=== PATIENT | male | born 1995 | race African-American/Black ===

== ENCOUNTER 2022-08-03 10:25 | Emergency (ER) | payer BC, SELFPAY ==
[2022-08-03 10:37] VITALS: BP 140/64; PULSE 93; RESP 20; TEMP 36.3; O2SAT 100; BMI 30.7
[2022-08-03 10:55] LABS: Appearance Urine Clear (Clear); Bilirubin Urine Negative (Negative); Blood Urine Negative (Negative); Color Urine Yellow (Yellow); Glucose Urine Negative (Negative); Ketones Urine Negative (Negative); Leukocyte Esterase Urine Negative (Negative); Nitrite Urine Negative (Negative); Protein Urine Trace (Negative); Urobilinogen Urine 0.2 (0.2-1.0); pH Urine 8.5 (5.0-8.5)
[2022-08-03 11:08] LABS: RBC Urine 0-2 (0-2); WBC Urine 0-2 (0-5)
[2022-08-03 11:09] LABS: Squamous Epithelial Cell Urine Few (None-Few)
[2022-08-03 11:19] LABS: Basophils Percent Auto 0.5 % (0.0-3.0); Eosinophils Percent Auto 1.2 % (0.0-7.0); Hematocrit 45.9 % (37.0-53.0); Hemoglobin* 16.1 gm/dL (13.5-17.5); Immature Granulocytes Pct Auto 0.3 %; Lactate* 2.6 mmol/L (0.5-1.9); Lymphocytes Percent Auto 9.5 % (20-44); Mean Corpuscular HGB Conc 35 gm/dL (32-36); Mean Corpuscular Hemoglobin 30 pg (26-34); Mean Corpuscular Volume 86 fL (80-100); Monocytes Percent Auto 7.8 % (0.0-11.0); Neutrophils Percent Auto 80.7 % (42.0-72.0); Platelet Count* 221 K/uL (140-440); RDW Coefficient of Variation % 12.2 % (11.5-15.5); Red Blood Count 5.33 m/uL (4.30-5.90); White Blood Count* 12.19 K/uL (4.50-11.00)
[2022-08-03 11:24] LABS: Slide Review Reflex No
[2022-08-03] MEDS: 0.9 % SODIUM CHLORIDE 1000 ml 1,000 ML IV (11:24)
[2022-08-03] MEDS: ONDANSETRON 2 MG/ML inj 4 MG IVP (11:24)
[2022-08-03] MEDS: KETOROLAC 15 MG/ML inj IVP (11:24)
--- NOTE | 2022-08-03 11:27 | CRLHL7_ITS ---
For Patients: As a result of the Century Cures Act, medical imaging exams and procedure reports are released immediately into your electronic medical record. You may view this report before your referring provider. If you have questions, please contact your health care provider. INDICATION: Right lower quadrant pain TECHNIQUE: Contrast-enhanced CT of abdomen and pelvis was performed after administration 98 cc Isovue 370. Coronal and sagittal reformats were obtained on an independent workstation. COMPARISON: None FINDINGS: Chest: Lung bases: No suspicious pulmonary nodules or consolidation. No basal effusion or pneumothorax. Heart base: Unremarkable. Abdomen/Pelvis: Liver: Non-cirrhotic morphology. No suspicious lesion. Gallbladder: Unremarkable. Spleen: Normal in size. Adrenal glands: Unremarkable. Kidneys: Symmetric enhancement. Mild right-sided hydronephrosis with nephrolith in the right distal ureter measuring 3 mm (2/130). Nonobstructive nephrolith in the right interpolar region measuring 2 mm (4/80).. No left-sided hydronephrosis or nephrolithiasis. Sub centimeter cortical hypodensities are too small to characterize, statistically cysts. Pancreas: Unremarkable. Lymph nodes: No retroperitoneal, mesenteric, inguinal, or pelvic adenopathy by CT criteria. Bowel: Stomach appears grossly normal. Small and large bowel is normal in caliber, without obstruction. Normal appendix (2/97). No pneumatosis, pneumoperitoneum or portal venous gas. Vascular structures: No AAA. The visceral vessels are patent. Patent portal and hepatic veins. Peritoneum: No abdominal/pelvic ascites. Abdominal Wall: Unremarkable. Urinary bladder: Limited evaluation due to underdistention. No gross pathology. Reproductive structures: Unremarkable for patient`s age. MSK: No acute fractures. No aggressive appearing lytic or blastic osseous lesion. IMPRESSION: 1. Mild right-sided hydronephrosis with nephrolith in the right distal ureter measuring 3 mm. Nonobstructive nephrolith in the right interpolar region measuring 2 mm. 2. Normal appendix. Please note that all CT scans at this facility use dose modulation, iterative reconstruction, and/or weight-based dosing when appropriate to reduce radiation dose to as low as reasonably achievable. Dictated by Dea Michele MD @ 08/03/2022 12:59:20 PM (Electronically Signed)
--- NOTE | 2022-08-03 11:28 | ED.GENADULT ---
HPI - General Adult General Date Seen: 08/03/22 Chief complaint: Abdominal Pain Stated complaint: appendix issues Time Seen by Provider: 08/03/22 10:57 Source: patient Mode of arrival: ambulatory Limitations: no limitations History of Present Illness HPI narrative: Patient is a 26-year-old male who presents for evaluation of abdominal pain. He says that he was awakened with abdominal pain at 4:00 a.m. in the morning, which he thought was related to had needing have a bowel movement. He into the bathroom, felt improved, but woke up at 7:00 a.m. with recurrent pain. At that time, he says he had a small somewhat constipated bowel movement but did not feel improved. He has had some nausea, no vomiting. Denies fevers. No urinary symptoms. No history of similar pain. It feels better when he is kneeling or walking around, he has not taken anything for pain at home. Pain has been persistent, slightly worsening, located in the right lower quadrant. Related Data Home Medications Medication Instructions Recorded Confirmed finasteride 1 mg tablet 1 mg PO DAILY 08/03/22 08/03/22 Allergies Allergy/AdvReac Type Severity Reaction Status Date / Time amoxicillin Allergy Hives Verified 08/03/22 12:15 Review of Systems Status of ROS: Reports: 10 or more systems reviewed and unremarkable except as noted in History and below [facility] Social History Smoking Status: Never smoker Do you use any of these nicotine containing products: None Second hand tobacco smoke exposure: No How often do you have a drink containing alcohol: 2-3 times a week How many standard drinks containing alcohol do you have on a typical day: 5 or 6 How often do you have six or more drinks on one occasion: Weekly AUDIT-C Alcohol total score: 8 Non-prescribed substance use: denies use Exam Narrative: Exam Narrative: Vital signs as noted above. In general, an alert, well-appearing patient. Head: Normocephalic, atraumatic. Eyes: Pupils are equal reactive. Extraocular movements are full. Conjunctivae are normal. ENT: Mucous membranes are moist. Throat is normal. Neck: Supple without lymphadenopathy. Heart: Regular rate and rhythm. No murmur or rub. Lungs: Clear bilaterally. No increased work of breathing, crackles or wheezes. Abdomen: Soft and nontender to palpation, no rebound guarding or rigidity. Extremities: Well perfused. No edema. No calf tenderness. Pulses intact. Neurologic: Patient is alert and oriented to person and place. Speech is fluent. Face is symmetric. Moves all extremities equally. Affect: Normal. Skin: Warm and dry. Well perfused. Const: Vital Signs, click to edit/add: Vital Signs - 24 hr 08/03/22 10:37 Temperature 97.3 F L Pulse Rate [Pulse Oximeter] 93 Respiratory Rate 20 Blood Pressure [Ri ght Upper Arm] 140/64 H Pulse Oximetry 100 Oxygen Delivery Me thod Room Air Documenting provider has reviewed patient's vital signs: yes Course Course Hospital Course: Recommended that we start by checking some labs given that his abdominal exam is very benign. Will give some IV fluids, Toradol, Zofran. Urinalysis [place] [address] and lactate was mildly elevated as well. CRP was normal. Other labs fairly unremarkable. He has a mildly elevated AST at 38 but ALT is normal, alk-phos is normal, other LFTs are within normal limits. Lipase is 31. Given mild elevations in lactate and white blood cell count I elected to do a CT scan. Differential diagnosis to include appendicitis, kidney stone, colitis, mesenteric adenitis, musculoskeletal pain, pyelonephritis. By my review, he does have a kidney stone at the UVJ on the right. I did not see any inflammatory changes in the right lower quadrant. Final radiology report is as follows: IMPRESSION: 1. Mild right-sided hydronephrosis with nephrolith in the right distal ureter measuring 3 mm. Nonobstructive nephrolith in the right interpolar region measuring 2 mm. 2. Normal appendix. He is feeling improved at this point. Recommend straining urine, push fluids, discussed that this size stone would typically pass on its own but if he does not see a stone and symptoms are persistent for more than a week or so he should be followed up in Urology. Return at any time for signs of infection such as dysuria, fevers, chills, vomiting. Ibuprofen 3 times daily with food, I gave oxycodone #10 if needed for more severe pain. Vital Signs Vital signs: Initial Vital Signs Temperature 97.3 F L 08/03/22 10:37 Temperature Source Temporal Artery Scan 08/03/22 10:37 Pulse Rate 93 08/03/22 10:37 Respiratory Rate 20 08/03/22 10:37 Blood Pressure 140/64 H 08/03/22 10:37 Blood Pressure Mean 89 08/03/22 10:37 Blood Pressure Position Sitting 08/03/22 10:37 Pulse Oximetry 100 08/03/22 10:37 Oxygen Delivery Method Room Air 08/03/22 10:37 Vital Signs Temperature 97.3 F L 08/03/22 10:37 Pulse Rate 93 08/03/22 10:37 Respiratory Rate 20 08/03/22 10:37 Blood Pressure 140/64 H 08/03/22 10:37 Pulse Oximetry 08/03/22 10:37 Oxygen Delivery Method Room Air 08/03/22 10:37 Temperature 97.3 F L 08/03/22 10:37 Pulse Rate 93 08/03/22 10:37 Respiratory Rate 20 08/03/22 10:37 Blood Pressure 140/64 H 08/03/22 10:37 Pulse Oximetry 08/03/22 10:37 Oxygen Delivery Method Room Air 08/03/22 10:37 Medical Decision Making Lab Data Labs: Lab Results 08/03/22 08/03/22 Range/Units 10:36 10:55 WBC 12.19 H (4.50-11.00) K/uL RBC 5.33 (4.30-5.90) m/uL Hgb 16.1 (13.5-17.5) gm/dL Hct 45.9 (37.0-53.0) % MCV 86 (80-100) fL MCH 30 (26-34) pg MCHC 35 (32-36) gm/dL RDW Coeff of Gina 12.2 (11.5-15.5) % Plt Count 221 (140-440) K/uL Neut % (Auto) 80.7 H (42.0-72.0) % Lymph % (Auto) 9.5 L (20-44) % [place] % (Auto) 7.8 (0.0-11.0) % Eos % (Auto) 1.2 (0.0-7.0) % Baso % (Auto) 0.5 (0.0-3.0) % Neut # (Auto) 9.80 H (1.7-7.0) K/uL Lymph # (Auto) 1.20 (0.90-2.90) K/uL [place] # (Auto) 1.00 H (0.00-0.90) K/UL Eos # (Auto) 0.10 (0.00-0.50) K/uL Baso # (Auto) 0.10 (0.00-0.30) K/uL Sodium 139 (135-149) mmol/L Potassium 3.9 (3.6-5.1) mmol/L Chloride 102 (96-114) mmol/L Carbon Dioxide 24 (20-32) mmol/L BUN 11 (5-24) mg/dL Creatinine 1.3 (0.5-1.5) mg/dL Estimated Creat Clear 90.91 Estimated GFR 77 ml/min Glucose 111 (60-115) mg/dL Lactate 2.6 H (0.5-1.9) mmol/L Calcium 9.8 (8.4-10.6) mg/dL Total Bilirubin 0.9 (0.1-1.5) mg/dL Direct Bilirubin 0.4 (0.0-0.5) mg/dL AST 38 H (12-35) U/L ALT 37 (4-50) U/L Alkaline Phosphatase 60 (40-150) U/L C-Reactive Protein 0.8 (0.5-1.0) mg/dL Total Protein 9.3 H (6.0-8.3) g/dL Albumin 5.2 H (3.3-5.0) g/dL Lipase 31 (23-300) U/L Urine Color Yellow (Yellow) Urine Appearance Clear (Clear) Urine pH 8.5 (5.0-8.5) Ur Specific [place] 1.020 (1.000-1.030) Urine Protein Trace A (Negative) Urine Glucose (UA) Negative (Negative) Urine Ketones Negative (Negative) Urine Blood Negative (Negative) Urine Nitrite Negative (Negative) Urine Bilirubin Negative (Negative) Urine Urobilinogen 0.2 (0.2-1.0) Ur Leukocyte Esterase Negative (Negative) Urine RBC 0-2 (0-2) Urine WBC 0-2 (0-5) Ur Squamous Epith Cells Few (None-Few) Urine Bacteria None (None) Discharge Plan Discharge Clinical Impression: Kidney stone on right side Patient Disposition: Home, Self-Care Condition: Improved Instructions: Kidney Stones (ED) Additional Instructions: Strain urine, push fluids. Ibuprofen 3 times daily as needed for pain, oxycodone if needed for severe symptoms. I would expect that this stone will pass on its own over the next few days, but if you do not see a stone within the next week, you should follow-up with Urology. Return at any time for severe uncontrolled pain, fever, or other worsening. Prescriptions: No Action finasteride 1 mg tablet 1 mg PO DAILY Follow Up/Referrals: Provider,Not a Local [Primary Care Provider] - Stand Alone Forms: [employer] Info Instructions
[2022-08-03 11:32] LABS: Chloride* 102 mmol/L (96-114)
[2022-08-03 11:33] LABS: Potassium* 3.9 mmol/L (3.6-5.1); Sodium* 139 mmol/L (135-149)
[2022-08-03 11:35] LABS: Creatinine* 1.3 mg/dL (0.5-1.5); Est. Creatinine Clearance* 90.91; Estimated Glomerular Filt Rate 77 ml/min
[2022-08-03 11:36] LABS: Blood Urea Nitrogen* 11 mg/dL (5-24); Calcium* 9.8 mg/dL (8.4-10.6); Carbon Dioxide* 24 mmol/L (20-32); Glucose* 111 mg/dL (60-115)
[2022-08-03 11:39] LABS: C Reactive Protein* 0.8 mg/dL (0.5-1.0)
[2022-08-03 11:44] LABS: Albumin* 5.2 g/dL (3.3-5.0)
[2022-08-03 11:47] LABS: Alanine Aminotransferase* 37 U/L (4-50); Alkaline Phosphatase* 60 U/L (40-150); Aspartate Amino Transferase* 38 U/L (12-35); Bilirubin Direct* 0.4 mg/dL (0.0-0.5); Bilirubin Total* 0.9 mg/dL (0.1-1.5); Lipase* 31 U/L (23-300); Total Protein* 9.3 g/dL (6.0-8.3)
[2022-08-03 13:15] VITALS: BP 140/64; PULSE 93; RESP 20; TEMP 36.3
== END 2022-08-03 13:15 | disposition home or self-care (01) ==
PROVIDERS: Emergency Provider Emergency Medicine
DX: N20.0 Calculus of kidney (principal)
CPT/HCPCS: 36415; 74177; 80048; 80076; 81001; 83605; 83690; 85025; 86140; 96361; 96374; 96375; 99284; 99285; J1885; J2405; J7030; Q9967